=== PATIENT | male | born 1950 | race Caucasian/White ===

== ENCOUNTER 2018-08-20 07:31 | Observation (INO) | payer OTHER ==
[~2018-08-20] VITALS: Ht 188 cm; Wt 149.7 kg
[2018-08-20] VITALS (14 sets, daily range): BP systolic 115–145; BP diastolic 51–79
[~2018-08-20 07:31] MED LIST: ADVIL100 M2 PO; ASPIR 8181 MG PO; ATORVASTATIN CA40 MG PO; COREG6.25 MG PO; NAPROSYN500 MG PO; NITROGLYCERIN0.4 MG SUBLING; NORCO 5-325 TA1 EACH PO; PLAVIX 75 MG TA75 M1 PO; PROTONIX40 M1 PO
[2018-08-20 08:14] LABS: HEMATOCRIT 44.9 % (42.0-52.0); HEMOGLOBIN 15.7 gm/dL (14.0-18.0); MCH 30.5 pg (26.0-34.0); MCV 87.2 fL (80.0-100.0); MPV 7.3 fl. (7.2-11.1); RBC 5.14 mil/uL (4.50-6.00); RDW-CV 14.3 % (10.5-14.5); WBC 6.2 thou/uL (4.0-11.0)
[2018-08-20] MEDS ORDERED: METFORMIN HCL500 MG PO (08:23)
[2018-08-20 08:24] LABS: APTT 29.6 Seconds (25.0-31.3); INR 1.1; PROTIME 11.3 Seconds (9.20-11.50)
[2018-08-20] MEDS ORDERED: PRESERVISION A1 EAC2 PO (08:24)
[2018-08-20 08:28] LABS: ANION GAP 11 mmol/L (7-16); BUN 14 mg/dL (7-18); CALCIUM 8.7 mg/dL (8.5-10.1); CHLORIDE 101 mmol/L (98-107); CO2 25 mmol/L (21-32); CREATININE 1.1 mg/dL (0.6-1.3); GLUCOSE 129 mg/dL (70-99); POTASSIUM 3.7 mmol/L (3.5-5.1); SODIUM 137 mmol/L (136-145)
[2018-08-20 08:33] LABS: ALBUMIN 3.9 g/dL (3.4-5.0); ALKALINE PHOSPHATASE 116 U/L (46-116); CHOLESTEROL 145 mg/dL (<200); HDL CHOLESTEROL 40 mg/dL (>40); LDL CHOLESTEROL 66 mg/dL (<100); SGOT 16 U/L (15-37); SGPT 29 U/L (30-65); TC:HDL 3.6 Ratio (Not establshd); TOTAL BILIRUBIN 0.6 mg/dL (<0.1-1.0); TOTAL PROTEIN 7.1 g/dL (6.4-8.2); TRIGLYCERIDE 197 mg/dL (<150); VLDL 39 mg/dL (<40)
[2018-08-20 08:37] LABS: SERUM ASSESSMENT Clear
--- NOTE | 2018-08-20 13:51 | EKG ---
[place] [address] ELECTROCARDIOGRAM REPORT Name: SOLOMON STINSON Room: [address] ADM IN .R.#: [id number] Admission: 08/20/18 Attend Phys: Solomon Beard MD, F Discharge: Date of : 54 Report #: [id number] THIS REPORT FOR: //name// [facility] Test Date: 2018-08-20 Test Time: 08:19:50 Pat Name: SOLOMON STINSON Department: Room: [facility] Gender: M Chairperson Anesthesiology: : 1950 Requested By: Solomon Beard Order Number: [id number] Marta MD: Solomon Beard Measurements Intervals [place] Rate: 67 P: 34 [place]: 190 QRS: -28 QRSD: 97 T: 46 QT: 388 QTc: 410 Interpretive Statements Sinus rhythm Borderline left axis deviation Abnormal R-wave progression, early transition Compared to ECG 05/01/2017 10:00:49 No significant changes Electronically Signed On 08-20-2018 13:50:57 IN HOME AIDE by Solomon Beard [email or web address] <ELECTRONICALLY SIGNED> By: Solomon Beard MD, [facility] 08/20/18 1350 8 8 Solomon Beard MD, [facility] /EPI
--- NOTE | 2018-08-20 13:55 | EKG ---
[place] [address] ELECTROCARDIOGRAM REPORT Name: SOLOMON STINSON Room: [address] ADM IN M.R.#: [id number] Admission: 08/20/18 Attend Phys: Solomon Beard MD, F Discharge: Date of : 54 Report #: [id number] THIS REPORT FOR: //name// [facility] Test Date: 2018-08-20 Test Time: 11:27:06 Pat Name: SOLOMON STINSON Department: Room: [address] Gender: M Labeling Strategist: [facility] : 1950 Requested By: Solomon Beard Order Number: [id number] Marta MD: Solomon Beard Measurements Intervals [place] Rate: 58 P: 27 MN: 195 QRS: -10 QRSD: 103 T: 43 QT: 424 QTc: 417 Interpretive Statements Sinus rhythm Abnormal R-wave progression, early transition Electronically Signed On 08-20-2018 13:55:04 CLAIMS SUPPORT SPECIALIST by Solomon Beard [email or web address] <ELECTRONICALLY SIGNED> By: Solomon Beard MD, [facility] 08/20/18 1355 1127 1127 Solomon Beard MD, FACC /EPI
--- NOTE | 2018-08-20 18:40 | NUR ---
PT WAS ADMITTED AT 1040 FROM DEALER SALES MANAGER, TR BAND WAS DEFLATED PER PROTOCOL UNTIL ALL AIR REMOVED. SITE C/D/I, PULSATILE, SOFT AND NO BLEEDING.
[2018-08-21 04:00] VITALS: BP 130/55
--- NOTE | 2018-08-21 04:06 | NUR ---
ASSUMED PT CARE AT 1915. 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 RIGHT RADIAL SITE DRESSING CLEAN, DRY, INTACT. PT DENIES PAIN THIS SHIFT. HOURLY ROUNDING COMPLETED. CALL LIGHT WITHIN REACH. PT PROGRESSING TOWARDS GOALS. NO CONCERNS VOICED THIS SHIFT.
[2018-08-21 05:46] LABS: CALCIUM 8.4 mg/dL (8.5-10.1); POTASSIUM 3.8 mmol/L (3.5-5.1)
[2018-08-21 07:21] VITALS: BP 130/64
[2018-08-21 08:00] VITALS: BP 117/37
[2018-08-21 11:10] VITALS: BP 130/64
[2018-08-21 11:30] VITALS: BP 137/71
--- NOTE | 2018-08-21 11:55 | NUR ---
I ASSUMED CARE OF THE PATIENT AT 0700. HE IS ALERT AND ORIENTED X4 AND BED IS IN THE LOW LOCKED POSITION WITH ALARM ON. PATIENT IS UP AD JUNIE. HOURLY ROUNDING IS COMPLETED AND PATIENT NEEDS ARE MET. PAIN IS DENIED. IS AT THE BEDSIDE FOR DISCHARGE AND IT IS UNDERSTOOD. NO SCRIPTS GIVEN. RIGHT WRIST IS C/D/I AND HAS NO PAIN. PATIENT DISCHARGED TO HOME AND IV REMOVED. DEPARTED WITH FAMILY AND PERSONAL VEHICLE TO HOME.
--- NOTE | 2018-08-21 11:58 | EKG ---
[place] [address] ELECTROCARDIOGRAM REPORT Name: SOLOMON STINSON Room: [address] IN M.R.#: [id number] Admission: 08/20/18 Attend Phys: Solomon Beard MD, F Discharge: 08/21/18 Date of : 54 Report #: [id number] THIS REPORT FOR: //name// 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: : 1950 Requested By: Solomon Beard Order Number: [id number] Reading MD: Solomon Beard Measurements Intervals [place] Rate: 63 P: 34 IN: 186 QRS: -21 QRSD: 100 T: 45 QT: 404 QTc: 414 Interpretive Statements Sinus rhythm Borderline left axis deviation Abnormal R-wave progression, early transition Compared to ECG 08/20/2018 11:27:06 No significant changes Electronically Signed On 08-21-2018 11:58:19 MUSEUM ARCHIVIST by Solomon Beard [email or web address] <ELECTRONICALLY SIGNED> By: Solomon Beard MD, [facility] 08/21/18 1158 0802 0802 Solomon Beard MD, [facility] /EPI
--- NOTE | 2018-08-21 13:28 | H ---
[address] [address] HISTORY AND PHYSICAL Name: GALO STINSON Room: [address] IN M.R.#: [id number] Admission: 08/20/18 Attend Phys: Galo Beard MD, F Discharge: 08/21/18 Date of : 54 Report #: [id number] THIS REPORT FOR: //name// CC: Judith Hennessy CHUTE MAN Galo Beard DATE OF SERVICE: 08/20/2018 HISTORY OF PRESENT ILLNESS: The patient is a 67-year-old white male who was brought to the outpatient department to undergo repeat cardiac catheterization. The patient initially presented in April 2017. Apparently, he was not feeling well at that time. I performed a cardiac catheterization on 04/29/2017 that showed the proximal LAD was recently occluded and there also appeared to be a recent occlusion of the proximal right coronary artery. I then placed a bare metal stent in the LAD, a drug-eluting stent in the distal right coronary artery and 2 bare metal stents in the proximal right coronary artery. Subsequent echocardiogram showed ejection fraction of 50% with left ventricular hypertrophy. He has actually done well since that time and continues to take aspirin and Plavix. He was actually seen in the Cardiology Clinic in December by my nurse practitioner when he had no significant complaints. He is not very active because of his large size, standing 6 feet 2 and weighing 330 pounds. He denies any recent chest pain, shortness of breath, palpitations or syncope. Because of multivessel coronary artery disease, he underwent a Lexiscan Cardiolite in July. This suggested an area of ischemia in the mid anterior wall and apex. Ejection fraction was 52%. This is felt to represent ischemia in the territory of the LAD and moderate risk. Because of his abnormal Cardiolite and multiple stents, I recommended repeat cardiac catheterization. PAST MEDICAL HISTORY: Significant for hernia repair, nasal septal surgery. He has a history of glucose intolerance and hyperlipidemia. MEDICATIONS: Consists of metformin, aspirin, Lipitor, carvedilol, Plavix. ALLERGIES: He has no known drug allergies. FAMILY HISTORY: Negative for heart disease. SOCIAL HISTORY: He is . 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 He and his live in [place]. Quit smoking years ago, rarely drinks alcohol. REVIEW OF SYSTEMS: He has sleep apnea, uses CPAP. No history of stroke, asthma, peptic ulcer disease, liver disease, kidney disease, cancer, psychiatric illness. He does have dry skin. PHYSICAL EXAMINATION: [place] [address] HISTORY AND PHYSICAL Name: MILADGALO Kemp Room: [address]#: [id number] Admission: 08/20/18 Attend Phys: Galo Beard MD, F Discharge: 08/21/18 Date of : 54 Report #: [id number] GENERAL: Revealed a middle-aged male. VITAL SIGNS: Blood pressure 130/80, pulse is 80. HEENT: He is anicteric. Conjunctivae pink. Mucous membranes moist. NECK: Neck veins do not appear distended. No carotid bruits. CHEST: Clear to auscultation. CARDIOVASCULAR: Regular rate and rhythm. ABDOMEN: Obese. EXTREMITIES: Had no edema. Dorsalis pedis pulse 2+ bilaterally. SKIN: Cool and dry. NEUROLOGIC: Nonfocal. IMPRESSION AND RECOMMENDATIONS: 1. Coronary artery disease. Previous multiple stents following non-ST elevation myocardial infarction a year ago. Abnormal nuclear stress test. Recommend cardiac catheterization. 2. Hyperlipidemia. The patient is on a statin drug. 3. Morbid obesity. 4. Glucose intolerance. 5. Sleep apnea. <ELECTRONICALLY SIGNED> By: Galo Beard MD, FACC 08/21/18 1328 0828 [id number] Beard MD, FACC /nt
--- NOTE | 2018-08-21 13:28 | SHORT ---
[address] [address] SHORT STAY SUMMARY Name: GALO STINSON Room: [address] IN M.R.#: [id number] Admission: 08/20/18 Attend Phys: Galo Beard MD, F Discharge: 08/21/18 Date of : 54 Report #: [id number] THIS REPORT FOR: //name// CC: YASEMIN Sellers Patient's Chart DATE OF SERVICE: 08/21/2018 DISCHARGE DIAGNOSES: 1. Coronary artery disease. 2. Glucose intolerance. 3. Sleep apnea. CONSULTANTS: None. PROCEDURES: Left heart catheterization with placement of a single drug-eluting stent in the proximal left anterior descending artery. HISTORY OF PRESENT ILLNESS: The patient is a 67-year-old white male who was brought to the outpatient department to undergo repeat cardiac catheterization. The patient presented in April 2007 with an episode of lightheadedness and diaphoresis. He came to [place] and was found to be having evidence of a non-STEMI. I performed a cardiac catheterization in April 2017 that actually showed a recent occlusion of the proximal LAD as well as the proximal right coronary artery. I then placed a bare metal stent in the proximal LAD, a drug-eluting stent in the distal right coronary artery, 2 bare metal stents in the proximal right coronary artery. Subsequent echocardiogram showed ejection fraction of 50%. He has done well since that time and continues to take aspirin and Plavix. He was last seen in Cardiology Clinic in December when he had no complaints. The patient is not very active at this time. Because of his multivessel coronary artery disease and multiple stents he underwent a Lexiscan Cardiolite in July that showed anteroapical ischemia. I recommended repeat cardiac catheterization. The patient actually denies any significant chest pain, shortness of breath, palpitation, syncope. He is not very active because of his large size, standing 6 feet 2 inches and weighing 330 pounds. PAST MEDICAL HISTORY: Significant for hernia repair, nasal septal surgery, glucose intolerance, hyperlipidemia. MEDICATIONS: Consist of metformin, aspirin, Lipitor, carvedilol, Plavix. ALLERGIES: He has no [place] [address] SHORT STAY SUMMARY Name: GALO STINSON Room: [address]#: [id number] Admission: 08/20/18 Attend Phys: Galo Beard MD, F Discharge: 08/21/18 Date of : 54 Report #: [id number] PHYSICAL EXAMINATION: VITAL SIGNS: Blood pressure is 130/80, pulse 80. CHEST: Clear to auscultation. CARDIOVASCULAR: Regular rate and rhythm. ABDOMEN: Obese. EXTREMITIES: No edema. SKIN: Warm and dry. RADIOLOGICAL DATA: ECG showed a sinus rhythm with no significant ST or T-wave change. LABORATORY DATA: Sodium 141, creatinine was 1.0, fasting blood sugar 105. His liver function studies were normal. His cholesterol was 145, triglyceride 197, HDL 40, LDL 66. His white blood cell count 6.2, hemoglobin 15.7. HOSPITAL COURSE: The patient was brought to the outpatient department. I performed repeat cardiac catheterization from the right radial artery. Results showed ejection fraction of 55%. A surprising finding was a 99% restenosis of the stent in the proximal LAD with slow flow. No significant disease in the circumflex. There were multiple stents in the right coronary artery that had a 50% restenosis. He was felt to have severe restenosis of the stent in the proximal LAD. He was given heparin and Aggrastat. I then placed a new drug-eluting stent in the proximal LAD. He tolerated the procedure well. A Vasc Band was placed over the right radial artery. Prior to discharge, the patient was ambulating, had no further complaints. Denied any chest pain, shortness of breath, lightheadedness. Followup ECG showed no changes. He was discharged to continue his home medications that consists of aspirin 81 mg a day, Lipitor 40 mg a day, carvedilol 6.25 mg twice a day. He was to continue Plavix 75 mg a day for at least 1 more year. He was not to resume his metformin until 08/22/2018 and he has nitroglycerin to take as needed for chest pain. He was discharged to return to the care of Judith Hennessy, his nurse practitioner for management of his glucose intolerance. I plan on seeing him in the Cardiology Clinic on 09/14/2018. He was felt to have good prognosis because of preserved left ventricular function and basically single vessel coronary artery disease at this time. He was to contact my office. He had recurrent chest pain or bleeding. I did recommend he start an exercise program and maintain low fat diet. 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 Fortunately, the patient no longer smokes. <ELECTRONICALLY SIGNED> By: Galo Beard MD, [facility] 08/21/18 1328 0920 1020Darose Beard MD, FAC /nt
--- NOTE | 2018-08-22 12:28 | CARD ---
[address] [address] CARDIAC CATH REPORT Name: GALO STINSON Room: [address] IN .R.#: [id number] Admission: 08/20/18 Attend Phys: Galo Beard MD, F Discharge: 08/21/18 Date of : 54 Report #: [id number] THIS REPORT FOR: //name// APPROVED REPORT Study performed: 08/20/2018 08:11:13 Patient Details Patient Status: Out-Patient Room #: The patient is a 67 year-old male Event Personnel Galo Beard House Carpenter Helper, Zandra Munoz RN Hold Worker, Yasir Guzmán (R) Monitor, Maribel Mahajan RTR Scrub Procedures Performed JOHN Place w/wo Plasty Single LAD Indication Positive stress test Risk Factors Hypercholesterolemia, Coronary Artery Disease, Diabetes Previous Procedures/Diagnoses Previous PCI, Previous IA Admission/Lab Medications/Medications given during procedure Glycoprotein IllbIlla Inhibitors, Heparin Unfract. Procedure Narrative The patient was brought electively to the Cardiac Catheterization Laboratory and was prepped and draped in a sterile manner. The right wrist was infiltrated with 1% Lidocaine subcutaneous anesthesia. A Slender Glidesheath sheath was inserted into the right radial artery. Coronary angiography was performed using coronary diagnostic catheters. The right coronary system was accessed and visualized with a Diagnostic JR4 catheter. The left coronary system was accessed and visualized with a Diagnostic JL4 catheter. The left ventricle was accessed and visualized with a Diagnostic Angled Pig catheter. Left ventricular/Aortic Valve gradient assessed via catheter pullback. Left ventriculogram was performed in WHITMAN projection. Closure device was deployed with a 6 Fr Vasc-Band Lng 27cm. [place] [address] CARDIAC CATH REPORT Name: GALO STINSON Room: [address]#: [id number] Admission: 08/20/18 Attend Phys: Galo Beard MD, F Discharge: 08/21/18 Date of : 54 Report #: [id number] the procedure well and there were no complications associated with the procedure. There was no hematoma. Intraoperative Conscious Sedation Sedation start time: 9:08 Case end Time: 10:08 Fentanyl 50 mcg Versed 4 mg Fluoro Time: 13.5 minutes Dose: DAP 133836 cGycm2 2535 mGy Contrast Type and Amount: Omnipaque 350 ml Coronary Angiography The patient's coronary anatomy is right dominant. Diagnostic Cath Left Main 0% stenosis LAD proximal stent had a 90% mid stenosis and a 99% stenosis at the distal edge of the stent just beyond the 1st diagonal branch Circumflex 0% stenosis Right Coronary proximal stent had a 30% restenosis. 50% stenosis at the mid rca. stent in distal rca had 0% restenosis Ramus 0% stenosis Left Ventriculography The left ventricle is normal in size with normal contractility. The left ventricular ejection fraction is estimated to be 55-60%. Left ventricular wall motion abnormalities are not present. There is no mitral insufficiency. Hemodynamics The aortic pressure is 93/63 mmHg with a mean of 74 mmHg. The left ventricular pressure is 109/10 mmHg with a mean of mmHg. The left ventricular end diastolic pressure is 14 mmHg. There was no gradient across the aortic valve upon pullback. Pullback from the left ventricle to the aorta revealed no gradient across the aortic valve. PCI Technique Lesion Anticoagulation was achieved with Heparin. bolus of iv aggrastat given Patient was preloaded with Plavix. Percutaneous coronary intervention was performed on the proximal left anterior descending artery segment. The lesion stenosis prior to intervention was 99% with BRAYDEN 2 flow. A 6F XB LAD 3.5 Guide Catheter was used to engage the lm ostium. A IG: BMW 190cm Interventional [place] [address] CARDIAC CATH REPORT Name: GALO STINSON Room: [address]#: [id number] Admission: 08/20/18 Attend Phys: Galo Beard MD, F Discharge: 08/21/18 Date of : 54 Report #: [id number] cross the lesion. BALLOON DILATION A Balloon catheter Trek RX 2.5 X 15 was inserted and inflated up to 12.00atm for 15seconds. Repeat angiography revealed the following post-dilatation results: 40% stenosis. Additional Inflation: 14.00atm for 12seconds. Additional Inflation: 18.00atm for 12seconds. STENT DEPLOYMENT A drug-eluting stent Carlos RX Stent 3.0X22mm was inserted and inflated up to 9.00atm for 13seconds. Repeat angiography revealed the following post-stent deployment results: 0% stenosis. Additional Inflation: 10.00atm for 16seconds. Additional Inflation: 11.00atm for 14seconds. Final angiography reveals 0 % stenosis with BRAYDEN 3 flow. Conclusion 1. no restenosis of stents in the rca 2. 99% restenosis of stent in the proximal lad 3. successful placement of a drug eluting stent in the proximal lad 4. normal LVEF Recommendations Cardiac Rehabilitation Referral Aggressive Medical Therapy Medications Administered Clopidogrel <ELECTRONICALLY SIGNED> By: Galo Beard MD, [facility] 08/22/18 1228 1228 1228Darose Beard MD, FACC /INF
== END 2018-08-21 11:10 | disposition home or self-care (01) ==
LOC: M.CL 07:31 → M.2W 10:04 → M.TBA-CV 10:04 → M.2W 10:40
PROVIDERS: ADMIT Internal Medicine Cardiovascular Disease
DX: I25.10 Atherosclerotic heart disease of native coronary artery without angina pectoris (principal); E78.5 Hyperlipidemia, unspecified; G47.30 Sleep apnea, unspecified; E66.01 Morbid (severe) obesity due to excess calories; E74.39 Other disorders of intestinal carbohydrate absorption; Z68.41 Body mass index [BMI] 40.0-44.9, adult; I25.2 Old myocardial infarction; Z95.5 Presence of coronary angioplasty implant and graft; Z79.899 Other long term (current) drug therapy; Z79.82 Long term (current) use of aspirin; Z87.891 Personal history of nicotine dependence